=== PATIENT | female | born 1980 | race Asian ===

== ENCOUNTER 2016-10-15 18:43 | Inpatient (IN) | payer OTHER ==
[2016-10-15] MEDS: ELECTROLYTE-148 SOLN 1,000 ML IV SCH ×2 (19:30→23:00)
--- NOTE | 2016-10-15 20:07 | HP ---
Past Medical History - Primary Care Physician PCP:: Peter Mims - Admission Chief Complaint: 39 weeks, labor, AMA. GDM diet controlled History of Present Illness: 35 yo f edc by sono 39 weeks, c/o contraction , mo rom, has bloody show, no fever. cx 3 cm 75 vx -2 mi, fhr cat 1, contraction q 2 min, admitted in labor. hx of GDM ,diet controlled History Source: Patient Limitations to Obtaining History: Language Barrier - Past Medical History ...: 2 ...Para: 1 ...Term: 1 ...: 0 ...Spon : 0 ...Induced : 0 ...Multiple Gestation: 0 ... Weeks Gestation by Dates: 39 ...EDC by Dates: 10/24/16 ...EDC by Sono: 10/20/16 - Past Surgical History Past Surgical History: Yes: None Hx Myomectomy: No Hx Transabdominal Cerclage: No - Smoking History Smoking history: Never smoked - Alcohol/Substance Use Hx Alcohol Use: No - Social History Usual Living Arrangement: Yes: With Spouse History of Recent Travel: No Home Medications - Allergies Allergies/Adverse Reactions: Allergies Allergy/AdvReac Type Severity Reaction Status Date / Time No Known Allergies Allergy Verified 05/02/14 09:54 - Home Medications Home Medications: Ambulatory Orders Vitamins (Sjr) - 1 tab PO DAILY 05/02/14 Review of Systems - Review of Systems Constitutional: reports: No Symptoms Eyes: reports: No Symptoms HENT: reports: No Symptoms Neck: reports: No Symptoms Cardiovascular: reports: No Symptoms Respiratory: reports: No Symptoms Gastrointestinal: reports: No Symptoms Genitourinary: reports: No Symptoms Breasts: reports: No Symptoms Reported Integumentary: reports: No Symptoms Neurological: reports: No Symptoms Endocrine: reports: No Symptoms Hematology/Lymphatic: reports: No Symptoms Psychiatric: reports: No Symptoms Physical Exam - Maternity Constitutional: Yes: Well Nourished, No Distress, Calm Eyes: Yes: WNL, Conjunctiva Clear, EOM Intact HENT: Yes: WNL, Atraumatic, Normocephalic Neck: Yes: WNL, Supple, Trachea Midline Cardiovascular: Yes: WNL, Regular Rate and Rhythm Breast(s): Yes: WNL - Abdominal Exam/OB Fundal Height: 38 Number of Fetuses: Single Presentation: Vertex Contractions: Yes Regularity: Regular Intensity: Moderate Monitor Mode: External Heart Rate Location: [facility] Category: I Accelerations: Uniform Decelerations: None - Vaginal Exam/OB Vaginal Bleediing: Bloody Show Speculum Exam: No Dilatation (cm): 3 cm Effacement (%): 75 Amniotic Membrane Status: Intact Presentation: Vertex/Position Station: -2 - Physical Exam Musculoskeletal: Yes: WNL Edema: LLE: 1+, RLE: 1+ Deep Tendon Reflex Grade: Normal +2 Hemorrhage Risk Assessment - Risk Factors High Risk Factors: Yes: None Risk Score: 0 Risk Level: Low Risk Problem List - Problems (1) 39 weeks gestation of Code(s): Z3A.39 - 39 WEEKS GESTATION OF (2) Advanced maternal age during Code(s): XUI4410 - (3) First stage of labor established Code(s): REN2453 - Assessment/Plan admit, heart monitoring, bGM, pain management
[2016-10-15 21:22] LABS: BASOPHIL 0.1 % (0-2.0); EOSINOPHIL 0.9 % (0-4.5); MCHC 34.1 g/dl (32.0-36.0); MEAN CELL VOLUME 96.8 fl (80-96); MEAN PLT VOLUME 8.7 fl (7.5-11.1); PLATELET COUNT 209 K/MM3 (134-434); RDW 13.5 % (11.6-15.6); WHITE BLOOD COUNT 10.4 K/mm3 (4.0-10.0)
[2016-10-15 21:38] VITALS: BMI 21.9
[2016-10-15 21:52] LABS: CALCIUM 8.9 mg/dL (8.5-10.1)
[2016-10-15 21:54] LABS: CREATININE 0.4 mg/dL (0.55-1.02)
[2016-10-15 21:56] LABS: INR 0.93 (0.82-1.09); PROTHROMBIN TIME (PATIENT) 10.2 SEC (9.98-11.88)
[2016-10-15 21:58] LABS: ACTIVATED PTT 30.1 SECONDS (26.9-34.4)
[2016-10-15 22:05] LABS: HIV 1 & 2 AB NEGATIVE; HIV 1 AGp24 NEGATIVE
[2016-10-15] MEDS: FENTANYL/BUPIVACAINE/NS/PF - PCEA - 50 ML DISP.SYRIN EP SCH (22:20)
[2016-10-15] MEDS ORDERED: TUBERCULIN PPD 5 TU/0.1ML SYRINGE (IN PATIENT USE ONLY) ID ONE (23:45)
[2016-10-16] MEDS ORDERED: ONDANSETRON 4 MG/2 ML VIAL IVPB PRN (00:35)
[2016-10-16] MEDS: D5W-LR W/ 20 UNITS OXYTOCIN 1,000 ML IV SCH ×2 (01:40→06:00)
[2016-10-16] MEDS ORDERED: oxyCODONE HCL 5 MG TABLET PO PRN (02:09)
[2016-10-16] MEDS ORDERED: WITCH HAZEL 50% (TUCKS) 40 PAD/JAR PAD TP PRN (02:09)
[2016-10-16] MEDS ORDERED: BENZOCAINE 20% 57 GM BOTTLE TP PRN (02:09)
[2016-10-16] MEDS ORDERED: BENZOCAINE 28 GM HEMORRHOIDAL OINTMENT TP PRN (02:09)
[2016-10-16] MEDS ORDERED: BISACODYL 10 MG SUPP.RECT RC PRN (02:09)
[2016-10-16] MEDS ORDERED: METHYLERGONOVINE MALEATE 0.2 MG/1 ML AMP IM PRN (02:09)
[2016-10-16] MEDS: ACETAMINOPHEN 325 MG TABLET (FP) PO PRN ×4 (04:40→20:34)
[2016-10-16] MEDS: IBUPROFEN 600 MG TABLET (FP) PO PRN ×4 (04:40→20:33)
[2016-10-16] MEDS: PRENATAL VITAMINS W/ FOLIC ACID TABLET (FP) PO SCH (10:27)
[2016-10-16] MEDS: FERROUS SO4 325 MG TABLET (FP) PO SCH ×2 (10:27→21:39)
[2016-10-16] MEDS: SENNOSIDES/DOCUSATE COMBO (SENNA PLUS) TABLET (UD) PO PRN (20:36)
[2016-10-17] MEDS: IBUPROFEN 600 MG TABLET (FP) PO PRN ×3 (02:26→17:21)
[2016-10-17] MEDS: ACETAMINOPHEN 325 MG TABLET (FP) PO PRN ×3 (02:27→17:18)
[2016-10-17] MEDS: PRENATAL VITAMINS W/ FOLIC ACID TABLET (FP) PO SCH (09:21)
[2016-10-17] MEDS: FERROUS SO4 325 MG TABLET (FP) PO SCH ×2 (09:21→21:12)
[2016-10-17 09:44] LABS: BASOPHIL 0.4 % (0-2.0); EOSINOPHIL 1.5 % (0-4.5); MCH 33.1 pg (25.7-33.7); MCHC 33.9 g/dl (32.0-36.0); MEAN CELL VOLUME 97.6 fl (80-96); MEAN PLT VOLUME 8.2 fl (7.5-11.1); NEUTROPHILS 75.6 % (42.8-82.8); PLATELET COUNT 166 K/MM3 (134-434); RDW 13.7 % (11.6-15.6); WHITE BLOOD COUNT 7.3 K/mm3 (4.0-10.0)
[2016-10-17] MEDS ORDERED: DIPHTH,PERTUSS(ACELL),TET 0.5 ML DISP.SYRIN IM ONE (10:00)
[2016-10-17] MEDS ORDERED: INFLUENZA VACCINE 60 MCG/0.5 ML (P/F DISP.SYRIN 16-17) IM ONE (10:00)
[2016-10-17] MEDS ORDERED: INFLUENZA VACCINE 45 MCG/0.5 ML (MDV 16-17) IM ONE (10:00)
--- NOTE | 2016-10-17 13:45 | PN ---
Post Progress Note - Subjective Subjective: 35 yo P2 now s/p No complains, voiding, tolerating PO, ambulating Type of Delivery: Vital Signs: Vital Signs Temperature 97.4 F L 10/17/16 08:15 Pulse Rate 75 10/17/16 08:15 Respiratory Rate 20 10/17/16 08:15 Blood Pressure 106/58 10/17/16 08:15 O2 Sat by Pulse Oximetry (%) 98 10/16/16 03:00 Breast Exam: Yes: Soft Uterus: Yes: Fundus Firm, Non-tender Abdomen/GI: Yes: Abdomen soft Lochia: Yes: Rubra Lochia, amount: Small Extremities: Yes: Calves non-tender Perineum: Yes: Intact Activity: Ambulating - Labs Labs: CBC WBC 7.3 K/mm3 (4.0-10.0) 10/17/16 09:17 RBC 3.33 M/mm3 (3.60-5.2) L D 10/17/16 09:17 Hgb 11.0 GM/dL (10.7-15.3) D 10/17/16 09:17 Hct 32.5 % (32.4-45.2) D 10/17/16 09:17 MCV 97.6 fl (80-96) H 10/17/16 09:17 MCHC 33.9 g/dl (32.0-36.0) 10/17/16 09:17 RDW 13.7 % (11.6-15.6) 10/17/16 09:17 Plt Count 166 K/MM3 (134-434) D 10/17/16 09:17 MPV 8.2 fl (7.5-11.1) 10/17/16 09:17 Neutrophils % 75.6 % (42.8-82.8) 10/17/16 09:17 Lymphocytes % 19.3 % (8-40) D 10/17/16 09:17 Monocytes % 3.2 % (3.8-10.2) L 10/17/16 09:17 Eosinophils % 1.5 % (0-4.5) 10/17/16 09:17 Basophils % 0.4 % (0-2.0) D 10/17/16 09:17 Assessment/Plan 35 yo P2 s/p PPD # 1 VSS, Afibrile Plan to D/C in am NPV x 6wks, RTO 6wks
[2016-10-17] MEDS: FENTANYL/BUPIVACAINE/NS/PF - PCEA - 50 ML DISP.SYRIN EP SCH (18:59)
[2016-10-17] MEDS: ELECTROLYTE-148 SOLN 1,000 ML IV SCH (19:00)
[2016-10-17] MEDS: SENNOSIDES/DOCUSATE COMBO (SENNA PLUS) TABLET (UD) PO PRN (21:12)
[2016-10-18] MEDS: ACETAMINOPHEN 325 MG TABLET (FP) PO PRN ×2 (00:08→08:12)
[2016-10-18] MEDS: IBUPROFEN 600 MG TABLET (FP) PO PRN ×2 (00:09→08:18)
[2016-10-18] MEDS: FERROUS SO4 325 MG TABLET (FP) PO SCH (09:04)
[2016-10-18] MEDS: PRENATAL VITAMINS W/ FOLIC ACID TABLET (FP) PO SCH (09:04)
[2016-10-18 09:17] VITALS: BP 109/73; PULSE 88; TEMP 97.9
--- NOTE | 2016-10-19 07:53 | DS ---
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 Signs: Vital Signs Temperature 97.9 F 10/18/16 09:13 Pulse Rate 88 10/18/16 09:13 Respiratory Rate 20 10/18/16 09:13 Blood Pressure 109/73 10/18/16 09:13 O2 Sat by Pulse Oximetry (%) 98 10/16/16 03:00 Constitutional: Yes: Well Nourished, No Distress, Calm Eyes: Yes: WNL, Conjunctiva Clear, EOM Intact HENT: Yes: WNL, Atraumatic, Normocephalic Neck: Yes: WNL, Supple, Trachea Midline Cardiovascular: Yes: WNL, Regular Rate and Rhythm Respiratory: Yes: WNL, Regular, CTA Bilaterally Gastrointestinal: Yes: WNL ...Rectal Exam: Yes: WNL Renal/: Yes: WNL ....Post : Yes: Uterus firm, Uterus non-tender, Slight lochia rubra Breast(s): Yes: WNL Musculoskeletal: Yes: WNL Extremities: Yes: WNL Integumentary: Yes: WNL Neurological: Yes: WNL, Alert, Oriented ...Motor Strength: WNL Psychiatric: Yes: WNL, Alert, Oriented Labs: CBC, BMP 10/17/16 09:17 10/15/16 20:30 Delivery - Delivery Vaginal Delivery: Spontaneous (no complication) Type of Anesthesia: Epidural Episiotomy/Laceration: Midline EBL (cc): 300 Delivery, Single - Stages of Labor Date 1st Stage Initiatied: 10/15/16 Time 1st Stage Initiated: 16:30 Date 2nd Stage Initiated: 10/16/16 Time 2nd Stage Initiated: 01:25 Date of Delivery: 10/16/16 Time of Delivery: 01:37 Time Placenta Delivered: 01:40 Placenta: Yes: Spontaneous - Condition of Infant Valve Inspector/Dyer Assistant Present: No Infant Gender: Male Weight: 6 lb 5 oz Position: Left, OA Total Hours ROM (Hrs/Mins): 1hr/35mins - 1 Minute Total Score: 9 5 Minutes Total Score: 9 - Orla Feeding Plan Initial Plan: Elected not to breastfeed exclusively throughout hospitalization Discharge Summary Procedures: Principal: vaginal delivery Condition: Good - Instructions Diet, Activity, Other Instructions: Physical activity Resume your normal everyday activity as tolerated no heavy lifting or exercise until seen by your surgeon. You may walk unlimited stew of and climb stairs. You may resume driving the car when you feel safe and comfortable behind the wheel. No sexual activity as instructed. Wound care If you have a bandage, leave it on, and keep dry for 48-72 hours. After that time discard the outer bandage. If they are tapes on the skin under the out of bandage leave them in place. They will peel off in the next 7 to 10 days. Do Not Peel them off. You may shower the day after surgery. If there are tapes present on the skin, you may shower over them. Diet There are no dietary restrictions. Eat healthy, high-fiber foods. Drink 6 to 8 glasses of liquid each day. This will assist in keeping your bowels are regular. Pain management You may take Tylenol or acetaminophen or Ibuprofen (for example, Motrin, Advil etc.) from my pain prescription medication is ordered should be taken as prescribed for moderate to severe pain. Call MD for any of the following: Severe pain not relieved by medication Fever of 101 or higher Excessive bleeding or drainage on dressing Inability to urinate return to office in 4-6 weeks. call for appointment. Referrals: Rei Cho MD [Staff Physician] - Disposition: HOME - Home Medications Comprehensive Discharge Medication List: Ambulatory Orders Vit Calc,Iron,Folic [ Vitamins] 1 each PO DAILY 10/16/16
== END 2016-10-18 12:00 | disposition home or self-care (01) | DRG 372 ==
LOC: JDEL 18:43 → JLDR 19:05 → JDEL 19:08 → J3W 10-16 13:25
PROVIDERS: ADMIT Obstetrics & Gynecology; ATTEND Obstetrics & Gynecology
PROC: 10E0XZZ Delivery of Products of Conception, External Approach (ICD-10-PCS; principal; 2016-10-16)
PROC: 0W8NXZZ Division of Female Perineum, External Approach (ICD-10-PCS; 2016-10-16)
DX: O24.420 Gestational diabetes mellitus in childbirth, diet controlled (principal); O75.89 Other specified complications of labor and delivery; O09.523 Supervision of elderly multigravida, third trimester; Z3A.39 39 weeks gestation of pregnancy; Z37.0 Single live birth
CPT/HCPCS: 36415; 59409; 80048; 85025; 85610; 85730; 86593; 86850; 86900; 86901; 87389; 90686; 90715; G0008